=== PATIENT | male | born 1935 | race Caucasian/White ===

== ENCOUNTER 2016-10-07 10:51 | Outpatient (CLI) ==
[2016-05-31 18:38] VITALS: BMI 30.5
[2016-10-07 13:53] LABS: BILIRUBIN,URINE Negative (NEGATIVE); KETONES,URINE Negative (NEGATIVE); LEUKOCYTE ESTERASE ,URINE Negative (NEGATIVE); NITRITE,URINE Negative (NEGATIVE); PROTEIN,URINE Negative (NEGATIVE); URINE, BLOOD Negative (NEGATIVE)
[2016-10-07 13:54] LABS: ADD URINE MICROSCOPIC NO; BASOPHILS # (AUTO) 0.1 K/uL (0-0.2); EOSINOPHILS # (AUTO) 0.2 K/ul (0.0-0.7); EOSINOPHILS % (AUTO) 3.1 % (0.0-7.0); HEMOGLOBIN 15.9 g/dl (14.0-18.0); IMMATURE GRANULOCYTE % (AUTO) 0.3 % (0.0-5.0); LYMPHOCYTES # (AUTO) 1.7 K/uL (0.60-3.4); LYMPHOCYTES % (AUTO) 25.1 (10.0-50.0); MEAN CORPUSCULAR HEMOGLOBIN 31.5 pg (27.0-31.0); MEAN CORPUSCULAR HGB CONC 34.6 (31.8-35.4); MEAN CORPUSCULAR VOLUME 91.1 fl (80.0-94.0); MONOCYTES # (AUTO) 0.6 K/uL (0.4-2.0); MONOCYTES % (AUTO) 8.9 (0-10); NEUTROPHILS # (AUTO) 4.2 K/ul (2.0-6.9); NEUTROPHILS % (AUTO) 61.6; PLATELET COUNT 224 10^3/uL (140-440); RED BLOOD COUNT 5.05 10^6/ul (4.70-6.10); WHITE BLOOD COUNT 6.74 K/ul (4.2-10.2)
[2016-10-07 15:31] LABS: ALBUMIN 3.8 g/dL (3.4-5.0); ALBUMIN/GLOBULIN RATIO 1.27; ANION GAP 14.1; BILIRUBIN,TOTAL 0.87 mg/dL (0.00-1.20); BUN/CREATININE RATIO 10.08; CALCIUM 9.3 mg/dL (8.2-10.2); CHOL/HDL RATIO 3.9 (4.5-6.4); CREATININE 1.19 mg/dL (0.60-1.10); POTASSIUM 4.1 mmol/L (3.5-5.1); TOTAL PROTEIN 6.8 g/dL (5.8-8.1); URIC ACID 8.1 mg/dL (2.6-7.2)
[2016-10-08 10:32] LABS: PSA, FREE 1.19 ng/mL
== END 2016-10-07 10:52 | disposition home or self-care (01) ==
LOC: LAB 10:51
PROVIDERS: ATTEND General Practice
DX: E03.9 Hypothyroidism, unspecified (principal); K52.9 Noninfective gastroenteritis and colitis, unspecified; M10.9 Gout, unspecified; Z79.899 Other long term (current) drug therapy; Z12.5 Encounter for screening for malignant neoplasm of prostate
CPT/HCPCS: 36415; 80053; 80061; 81001; 84443; 84550; 85025

== ENCOUNTER 2017-02-10 12:58 | Outpatient (CLI) ==
[2016-05-31 18:38] VITALS: BMI 30.5
[2017-02-10 13:23] LABS: BASOPHILS # (AUTO) 0.1 K/uL (0-0.2); BASOPHILS % (AUTO) 1.4 % (0.0-3.0); EOSINOPHILS # (AUTO) 0.2 K/ul (0.0-0.7); EOSINOPHILS % (AUTO) 2.8 % (0.0-7.0); HEMOGLOBIN 15.5 g/dl (14.0-18.0); IMMATURE GRANULOCYTE % (AUTO) 0.5 % (0.0-5.0); LYMPHOCYTES # (AUTO) 1.6 K/uL (0.60-3.4); LYMPHOCYTES % (AUTO) 24.1 (10.0-50.0); MEAN CORPUSCULAR HEMOGLOBIN 31.5 pg (27.0-31.0); MEAN CORPUSCULAR HGB CONC 34.4 (31.8-35.4); MEAN CORPUSCULAR VOLUME 91.5 fl (80.0-94.0); MONOCYTES # (AUTO) 0.6 K/uL (0.4-2.0); NEUTROPHILS % (AUTO) 62.2; PLATELET COUNT 215 10^3/uL (140-440); RED BLOOD COUNT 4.92 10^6/ul (4.70-6.10); WHITE BLOOD COUNT 6.48 K/ul (4.2-10.2)
[2017-02-10 13:26] LABS: ADD URINE MICROSCOPIC NO; BILIRUBIN,URINE Negative (NEGATIVE); KETONES,URINE Negative (NEGATIVE); LEUKOCYTE ESTERASE ,URINE Negative (NEGATIVE); NITRITE,URINE Negative (NEGATIVE); PH,URINE 5.5 (5-9); PROTEIN,URINE Negative (NEGATIVE); URINE, BLOOD Negative (NEGATIVE)
[2017-02-10 13:39] LABS: ALBUMIN 3.8 g/dL (3.4-5.0); ALBUMIN/GLOBULIN RATIO 1.23; BILIRUBIN,TOTAL 0.97 mg/dL (0.00-1.20); BUN/CREATININE RATIO 11.2; CALCIUM 9.2 mg/dL (8.2-10.2); CHOL/HDL RATIO 4.3 (4.5-6.4); CREATININE 1.25 mg/dL (0.60-1.10); TOTAL PROTEIN 6.9 g/dL (5.8-8.1)
[2017-02-11 09:39] LABS: PSA, FREE 1.19 ng/mL
== END 2017-02-10 12:59 | disposition home or self-care (01) ==
LOC: LAB 12:58
PROVIDERS: ATTEND General Practice
DX: E03.9 Hypothyroidism, unspecified (principal); Z68.30 Body mass index [BMI] 30.0-30.9, adult; Z79.899 Other long term (current) drug therapy; R97.20 Elevated prostate specific antigen [PSA]
CPT/HCPCS: 36415; 80053; 80061; 81001; 84153; 85025

== ENCOUNTER 2017-07-13 12:46 | Outpatient (CLI) | payer OTHER ==
[2016-05-31 18:38] VITALS: BMI 30.5
== END 2017-07-13 12:47 | disposition home or self-care (01) ==
LOC: LAB 12:46
PROVIDERS: ATTEND General Practice
DX: E03.9 Hypothyroidism, unspecified (principal); Z68.30 Body mass index [BMI] 30.0-30.9, adult; Z79.899 Other long term (current) drug therapy; Z12.5 Encounter for screening for malignant neoplasm of prostate
CPT/HCPCS: 36415; 80053; 80061; 81001; 84443; 85025

== ENCOUNTER 2017-10-08 11:47 | Emergency (ER) | payer OTHER ==
[2017-10-08 11:47] VITALS: BMI 30.5
[2017-10-08 11:53] VITALS: BP 146/83; TEMP 98.4
[2017-10-08] MEDS ORDERED: INDOCIN PO STA (14:27)
--- NOTE | 2017-10-08 14:32 | ED.PDOC ---
General ED Provider: Dr. BONY ZENG Chief Complaint: Knee Pain/Injury Stated Complaint: States last evenining had onset of pain Rt leg. Denies knowledge of injury. Time Seen by Physician: 12:05 Mode of Arrival: Walk-In Information Source: Patient Exam Limitations: No limitations [facility] Documentation Reviewed and Agree: Yes Reviewed sepsis parameters & appropriate labs ordered?: Yes System Inflammatory Response Syndrome: Not Applicable Sepsis Protocol: For patient's 13 years and over: Temp is 96.8 and below OR 101 and greater Pulse >90 BPM Resp >20/minute Acutely Altered Mental Status Are patient's symptoms suggestive of a new infection, such as: -Pneumonia -Skin, Soft Tissue -Endocarditis -UTI -Bone, Joint Infection -Implantable Device -Acute Abdominal Infection -Wound Infection -Meningitis -Blood Stream Catheter Infection -Unknown System Inflammatory Response Syndrome: Not Applicable Musculoskeletal Complaint Exam - Lower Extremity Complaint/Exam Location of Pain: Reports: Right, Leg Mechanism of Injury: Reports: No known trauma Onset/Duration: 12 hrs Symptoms Are: Still present Onset of Pain: Reports: Immediate Initial Severity: Moderate Current Severity: Mild Location: Reports: Discrete Character: Reports: Dull, Aching Alleviating: Reports: Rest Aggravating: Reports: Movement, Weight bearing Able to Bear Weight: Yes Associated Signs and Symptoms: Denies: Swelling, Redness, Bruising, Fever, Weakness, Tingling DVT Risk Factors: Reports: None, Recent travel Related Surgical History: Reports: None Lower Extremity Findings: Absent: Swelling, Ecchymosis, Laceration, Erythema, Warmth Compartment Syndrome Risk Factors: Absent: Pain, Pallor, Pulselessness, Paresthesias Differential Diagnoses: Strain Review of Systems - Review Of Systems Constitutional: Reports: No symptoms Eyes: Reports: No symptoms Ears, Nose, Mouth, Throat: Reports: No symptoms Respiratory: Reports: No symptoms Cardiac: Reports: No symptoms GI: Reports: No symptoms : Reports: No symptoms Musculoskeletal: Reports: No symptoms, Joint pain (Rt Knee pain ) Skin: Reports: No symptoms Neurological: Reports: No symptoms Endocrine: Reports: No symptoms Hematologic/Lymphatic: Reports: No symptoms All Other Systems: Reviewed and Negative Past Medical History - Past Medical History Previously Healthy: Yes Endocrine: Reports: Hypothyroid Cardiovascular: Reports: None Respiratory: Reports: None Hematological: Reports: None Gastrointestinal: Reports: None Genitourinary: Reports: Other (BPH) Neuro/Psych: Reports: None Musculoskeletal: Reports: None, Joint Pain (Rt Knee/) Cancer: Reports: None - Surgical History General Surgical History: Reports: None - Family History Family History: Reports: None - Social History Smoking Status: Never smoker Hx Substance Use: No Alcohol Screening: None - Immunizations Tetanus Shot up to Date: No Physical Exam - Physical Exam Appearance: Well-appearing, Well-nourished Ill-appearing: None Pain Distress: Moderate Eyes: [place], EOMI, Conjunctiva clear ENT: Ears normal, Nose normal, Oropharynx normal Respiratory: Airway patent, Breath sounds clear, Breath sounds equal, Respirations nonlabored Cardiovascular: RRR, Pulses normal, No rub, No murmur GI/: Soft, Nontender, No masses, Bowel sounds normal, No Organomegaly Musculoskeletal: Normal strength (Tenderness to palpation along inner and outer joint line/.minimal edema), ROM intact, No edema, No calf tenderness Skin: Warm, Dry, Normal color Neurological: Sensation intact, Motor intact, Reflexes intact, Cranial nerves intact, Alert, Oriented Psychiatric: Affect appropriate, Mood appropriate Interpretation - Radiology Interpretation Radiology Interpretation By: Radiologist Radiology Results: No acute changes Xray Comments: chronic arthritic changes Critical Care Note - Critical Care Note Total Time (mins): 0 Course - Course Hematology/Chemistry: 10/08/17 14:43 10/08/17 14:43 Orders, Labs, Meds: Lab Review 10/08/17 10/08/17 14:43 14:43 WBC 11.01 H RBC 4.88 Hgb 15.4 Hct 44.6 MCV 91.4 MCH 31.6 H MCHC 34.5 RDW Coeff of Matthieu 12.4 Plt Count 202 Immature Gran % (Auto) 0.5 Neut % (Auto) 77.6 Lymph % (Auto) 11.6 [place] % (Auto) 8.7 Eos % (Auto) 1.1 Baso % (Auto) 0.5 Immature Gran # (Auto) 0.1 Neut # (Auto) 8.5 H Lymph # (Auto) 1.3 [place] # (Auto) 1.0 Eos # (Auto) 0.1 Baso # (Auto) 0.1 ESR 7 Sodium 139 Potassium 4.2 Chloride 102 Carbon Dioxide 28 Anion Gap 13.2 BUN 13 Creatinine 1.26 H Estimated GFR (MDRD) 55.00 BUN/Creatinine Ratio 10.31 Glucose 84 Uric Acid 7.1 Calcium 9.3 Total Bilirubin 0.9 AST 17 ALT 13 Alkaline Phosphatase 56 Total Protein 7.1 Albumin 3.8 Globulin 3.3 Albumin/Globulin Ratio 1.15 Orders Category Date Time Status CBC W/ AUTO DIFF Stat LAB 10/08/17 14:43 Completed CMP [COMPREHENSIVE METABOLIC PANEL] Stat LAB 10/08/17 14:43 Completed ESR Stat LAB 10/08/17 14:43 Completed URIC ACID Stat LAB 10/08/17 14:43 Completed Indomethacin [Indocin] MEDS 10/08/17 14:27 Discontinued 25 mg PO ONCE STA Methylprednisolone Sod Succ/Pf [Solu-Medrol 125 mg] MEDS 10/08/17 16:02 Discontinued 125 mg IM ONCE STA CT KNEE LEFT WITHOUT CONTRAST Stat RADS 10/08/17 14:31 Completed Medications Discontinued Medications Generic Name Dose Route Start Last Admin Trade Name Freq PRN Reason Stop Dose Admin Indomethacin 25 mg 10/08/17 14:27 10/08/17 14:57 Indocin PO 10/08/17 14:28 Not Given ONCE STA Methylprednisolone Sodium Succinate 125 mg 10/08/17 16:02 10/08/17 16:08 Solu-Medrol 125 Mg IM 10/08/17 16:03 125 mg ONCE STA Administration Vital Signs: Temp Pulse Resp BP Pulse Ox 10/08/17 11:48 98.4 F 90 18 146/83 H 96 Departure - Departure Time of Disposition: 16:30 Disposition: HOME SELF-CARE Discharge Problem: Arthralgia of knee, left, Cellulitis of knee, left, Tricompartment osteoarthritis of right knee Instructions: Cellulitis (ED), Knee Pain (ED) Condition: Good Pt referred to PMD for follow-up: Yes IPMP verified?: No Additional Instructions: Take meds as directed Apply warm moist heat to lt knee to aid in reducing discomfort Take Ibuprofen 200 mg 3 tabs every 6 hrs as needed to reduce pain Allergies/Adverse Reactions: Allergies sulfamethoxazole [From Bactrim] Allergy (Mild, Unverified 10/08/17 11:53) Patient noted he took the ATB with a tylenol. Soon after he became severly chilled two hours later he woke up drenched. He stopped the ATB and did not have and recurrence. trimethoprim [From Bactrim] Allergy (Mild, Unverified 10/08/17 11:53) Patient noted he took the ATB with a tylenol. Soon after he became severly chilled two hours later he woke up drenched. He stopped the ATB and did not have and recurrence. naproxen [From Aleve] Adverse Reaction (Unverified 10/08/17 11:53) Disposition Discussed With: Patient
--- NOTE | 2017-10-08 15:11 | CT ---
EXAM: CT scan of the left knee without contrast HISTORY: Swelling, pain TECHNIQUE: Helical imaging of the left knee was performed without contrast. Sagittal and coronal re constructions and axial images were provided for interpretation. FINDINGS: The distal femur and proximal tibia appear intact. No acute fractures are seen within the proximal fibula. Mild subchondral cystic changes are seen along the medial aspect of the lateral fe moral condyle. Additional mild subchondral cystic changes are seen along the midline tibia. No acut e fractures are seen within the patella. There is edema seen within the soft tissues anterior to the patella and within the anterior soft tissues inferior to the patella.. No lytic or destructive das ges are seen within the osseous structures. There is moderate loss of joint space between the patell a and trochlea of the distal femur. IMPRESSION: A fracture dislocation seen within the left knee. There is mild to moderate tricompartmental arthritis of the left knee. There is edema seen within the anterior soft tissues of the left knee as described above. Findings m ay represent cellulitis. No definite fluid collections are seen.
[2017-10-08] MEDS ORDERED: SOLU-MEDROL 125 MG IM STA (16:02)
== END 2017-10-08 16:40 | disposition home or self-care (01) ==
LOC: ED 11:47
DX: M25.562 Pain in left knee (principal); L03.116 Cellulitis of left lower limb; M17.9 Osteoarthritis of knee, unspecified
CPT/HCPCS: 36415; 80053; 84550; 85025; 85651; 96372; 99283

== ENCOUNTER 2017-11-09 10:00 | Outpatient (CLI) | END 2017-11-09 10:01 | disposition home or self-care (01) | LOC: FCC-LAB 10:00 | PROVIDERS: ATTEND General Practice | DX: E03.9 Hypothyroidism, unspecified (principal); R97.20 Elevated prostate specific antigen [PSA]; Z79.899 Other long term (current) drug therapy | CPT/HCPCS: 36415; 80053; 80061; 81001; 84153; 85025 ==

== ENCOUNTER 2018-03-03 16:13 | Outpatient (CLI) | END 2018-03-03 16:14 | disposition home or self-care (01) | LOC: FCC-LAB 16:13 | PROVIDERS: ATTEND General Practice | DX: E03.9 Hypothyroidism, unspecified (principal); Z79.899 Other long term (current) drug therapy | CPT/HCPCS: 36415; 80053; 80061; 81001; 85025 ==